=== PATIENT | female | born 1975 | race Caucasian/White ===

== ENCOUNTER 2020-02-27 09:51 | Outpatient (CLI) | payer OTHER, SELFPAY ==
--- NOTE | ~2020-02-27 | MM_ITS ---
EXAMINATION: MM screening [facility] BI w messi HISTORY: Screening TECHNIQUE: Craniocaudal and mediolateral oblique 3-D tomosynthesis images were obtained and synthetic 2-D images were generated. CAD analysis was submitted and interpreted. COMPARISON: Comparison to multiple prior studies sequentially, with oldest reviewed study dated 11/12. BREAST PARENCHYMAL COMPOSITION: There are scattered areas of fibroglandular density. FINDINGS: There is no evidence of suspicious mass, calcification, or architectural distortion to sugg est malignancy in either breast. There has been no suspicious interval change. IMPRESSION: 1. No mammographic evidence of malignancy. 2. Recommend routine screening mammography in one year. BI-RADS Category 1: Negative Reviewed, dictated and finalized at location A.
== END 2020-02-27 09:52 | disposition home or self-care (01) ==
LOC: ANHIMG 09:52
PROVIDERS: PCP Family Medicine; Visit Provider Obstetrics & Gynecology
DX: Z12.31 Encounter for screening mammogram for malignant neoplasm of breast (principal)
CPT/HCPCS: 77063; 77067

== ENCOUNTER 2021-02-28 14:40 | Outpatient (CLI) | payer OTHER, SELFPAY ==
--- NOTE | ~2021-02-28 | US_ITS ---
EXAMINATION: US pelvic complete w TV DATE: 02/28/2021 15:43 INDICATION: Displacement of intrauterine contraceptive device TECHNIQUE: Multiple transabdominal and endovaginal sonographic images of the pelvis were obtained. COMPARISON: 11/12/2012 FINDINGS: The uterus measures 10.2 x 4.9 x 6.0 cm. The endometrial complex is not well-defined. The I UD appears to be in expected position. The left ovary is not visualized however no left adnexal abnor mality is seen. The right ovary measures 2.6 x 3.1 x 1.9 cm. Nabothian cysts of the cervix measure up to 1.3 cm.. There is normal vascular flow in the right ovary. There is no free fluid in the pelvis. IMPRESSION: 1. IUD not well visualized but appears to be in expected position. 2. Endometrial complex not well-defined, significance unclear. Reviewed, dictated and finalized at location B.
--- NOTE | ~2021-02-28 | MM_ITS ---
EXAMINATION: MM screening [facility] BI w messi HISTORY: Screening TECHNIQUE: Craniocaudal and mediolateral oblique 3-D tomosynthesis images were obtained and synthetic 2-D images were generated. CAD analysis was submitted and interpreted. COMPARISON: Comparison to multiple prior studies sequentially, with oldest reviewed study dated 01/12. BREAST PARENCHYMAL COMPOSITION: There are scattered areas of fibroglandular density. FINDINGS: There is no evidence of suspicious mass, calcification, or architectural distortion to sugg est malignancy in either breast. There has been no suspicious interval change. IMPRESSION: 1. No mammographic evidence of malignancy. 2. Recommend routine screening mammography in one year. BI-RADS Category 1: Negative Reviewed, dictated and finalized at location A.
== END 2021-02-28 14:41 | disposition home or self-care (01) ==
PROVIDERS: PCP Family Medicine; Visit Provider Obstetrics & Gynecology
DX: Z12.31 Encounter for screening mammogram for malignant neoplasm of breast (principal); T83.32XA Displacement of intrauterine contraceptive device, initial encounter; Z97.5 Presence of (intrauterine) contraceptive device
CPT/HCPCS: 76830; 76856; 77063; 77067

== ENCOUNTER 2022-04-26 08:35 | Outpatient (CLI) | payer OTHER, SELFPAY ==
--- NOTE | ~2022-04-26 | MM_ITS ---
EXAMINATION: MM screening [facility] BI w messi HISTORY: Screening mammogram TECHNIQUE: Craniocaudal and mediolateral oblique 3-D tomosynthesis images were obtained and synthetic 2-D images were generated. CAD analysis was submitted and interpreted. COMPARISON: 02/28/2021, 02/27/2020, 01/31/2019 BREAST PARENCHYMAL COMPOSITION: There are scattered areas of fibroglandular density. FINDINGS: No suspicious mass, calcification, or architectural distortion are identified in either kayla ast to suggest malignancy. There has been no suspicious interval change. IMPRESSION: 1. No mammographic evidence of malignancy. 2. Recommend routine screening mammography in one year. BI-RADS Category 1: Negative Reviewed, dictated and finalized at location B.
== END 2022-04-26 08:36 | disposition home or self-care (01) ==
PROVIDERS: PCP Family Medicine; Visit Provider Obstetrics & Gynecology
DX: Z12.31 Encounter for screening mammogram for malignant neoplasm of breast (principal)
CPT/HCPCS: 77063; 77067

== ENCOUNTER → 2023-01-16 13:43 | Outpatient (CLI) | payer OTHER, SELFPAY ==
--- NOTE | ~2023-01-16 | CT_ITS ---
EXAMINATION: CT abdomen pelvis w con DATE: 01/16/2023 14:10 INDICATION: Left lower quadrant abdominal pain. TECHNIQUE: Computed tomography (CT) of the abdomen and pelvis was performed with 100 mL Omnipaque-350 intravenous contrast. Automated exposure control and iterative reconstruction technique were employe d. The dose-length product was 1014.73 mGy-cm. COMPARISON: None FINDINGS: Visualized lower lungs are clear. Heart size is normal. No pericardial or pleural effusion. Cholecyst ectomy clips the gallbladder fossa. Liver, spleen, pancreas, bilateral adrenal glands and kidneys are normal. Mild scattered colonic diverticulosis with prominent inflammatory stranding and associated f ocal colonic wall thickening such with a diverticulum at the distal descending colon consistent with diverticulitis. No abscess, free intraperitoneal fluid or extraluminal gas. Small bowel and appendix are normal. Small fat-containing umbilical hernia. Bladder is normal. T-shaped IUD in expected positi on within the anteverted uterus. Bilateral ovarian cysts/follicles the largest on the left measuring 2.4 cm. Mild lumbar levocurvature. IMPRESSION: 1. Radiographically uncomplicated diverticulitis at the distal descending colon. Reviewed, dictated and finalized at location A. IMPRESSION: 1. Radiographically uncomplicated diverticulitis at the distal descending colon .
== END ==
PROVIDERS: PCP Family Medicine; Visit Provider Family Medicine
DX: R10.32 Left lower quadrant pain (principal); R68.83 Chills (without fever); S30.860A Insect bite (nonvenomous) of lower back and pelvis, initial encounter; X58.XXXA Exposure to other specified factors, initial encounter
CPT/HCPCS: 74177; Q9967

== ENCOUNTER 2023-06-05 08:03 | Outpatient (CLI) | payer OTHER, SELFPAY ==
--- NOTE | ~2023-06-05 | MM_ITS ---
EXAMINATION: MM screening [facility] BI w messi HISTORY: Screening mammogram TECHNIQUE: Craniocaudal and mediolateral oblique 3-D tomosynthesis images were obtained and synthetic 2-D images were generated. CAD analysis was submitted and interpreted. COMPARISON: 04/26/2022, 02/28/2021, 02/27/2020 BREAST PARENCHYMAL COMPOSITION: There are scattered areas of fibroglandular density. FINDINGS: No suspicious mass, calcification, or architectural distortion are identified in either kayla ast to suggest malignancy. There has been no suspicious interval change. IMPRESSION: 1. No mammographic evidence of malignancy. 2. Recommend routine screening mammography in one year. 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
== END 2023-06-05 08:04 | disposition home or self-care (01) ==
LOC: ANHIMG 08:07
PROVIDERS: PCP Family Medicine; Visit Provider Obstetrics & Gynecology
DX: Z12.31 Encounter for screening mammogram for malignant neoplasm of breast (principal)
CPT/HCPCS: 77063; 77067

== ENCOUNTER 2023-12-02 16:24 | Outpatient (CLI) | payer OTHER, SELFPAY ==
--- NOTE | ~2023-12-02 | XR_ITS ---
EXAMINATION: XR foot LT min 3V, XR ankle LT min 3V DATE: 12/02/2023 16:53 INDICATION: Left foot pain TECHNIQUE: 1. Anteroposterior, mortise, additional oblique and lateral view of the left ankle were obtained. 2. Dorsoplantar, two oblique and lateral views of the left foot were obtained. COMPARISON: None. FINDINGS: Alignment of the left foot and ankle is normal. No fracture. Mild polyarticular osteoarthritis at the first metatarsophalangeal and multiple tarsometatarsal and interphalangeal joints. No cortical erosi ons or periosteal reaction. Small plantar calcaneal spur. The soft tissues are unremarkable. IMPRESSION: 1. Mild polyarticular osteoarthritis in the left mid and forefoot. No acute osseous abnormality. Reviewed, dictated and finalized at location B. IMPRESSION: 1. Mild polyarticular osteoarthritis in the left mid and forefoot. No acute oss eous abnormality.
== END 2023-12-02 16:25 ==
PROVIDERS: PCP Nurse Practitioner Family; Visit Provider Nurse Practitioner Family
DX: M79.672 Pain in left foot (principal); E66.01 Morbid (severe) obesity due to excess calories; Z71.3 Dietary counseling and surveillance
CPT/HCPCS: 73610; 73630

== ENCOUNTER 2024-01-11 09:04 | Outpatient (CLI) | payer OTHER, SELFPAY ==
--- NOTE | ~2024-01-11 | MR_ITS ---
EXAMINATION: MR foot LT wo con DATE: 01/11/2024 10:13 INDICATION: Left foot pain and swelling. TECHNIQUE: Magnetic resonance imaging (MRI) of the left foot was performed without intravenous contra st. COMPARISON: Left foot radiograph 12/02/2023 FINDINGS: Bone alignment is normal. No fracture. There is mild osteoarthritis of first metatarsophala ngeal joint. There is a skin marker lateral to the hindfoot. The plantar fascia is normal. There is a n enthesophyte at the calcaneal attachment. There is a small ankle joint effusion. The tendons are no rmal. There are changes of prior lateral ankle sprain characterized by thickening and increased signa l intensity involving the anterior talofibular ligament, calcaneofibular ligament, and anterior tibio fibular ligament. IMPRESSION: 1. Changes of prior lateral ankle sprain. 2. Small ankle joint effusion. Reviewed, dictated and finalized at location E.
== END 2024-01-11 09:05 ==
LOC: MICIMG 09:05
PROVIDERS: PCP Nurse Practitioner Family; Visit Provider Nurse Practitioner Family
DX: M79.672 Pain in left foot (principal); R20.0 Anesthesia of skin; M25.472 Effusion, left ankle
CPT/HCPCS: 73718

== ENCOUNTER 2024-06-11 07:30 | Outpatient (CLI) | payer OTHER, SELFPAY ==
--- NOTE | ~2024-06-11 | MM_ITS ---
EXAMINATION: MM screening [facility] BI w messi HISTORY: Screening mammogram TECHNIQUE: Craniocaudal and mediolateral oblique 3-D tomosynthesis images were obtained and synthetic 2-D images were generated. CAD analysis was submitted and interpreted. COMPARISON: 06/05/2023, 04/26/2022, 02/28/2021 BREAST PARENCHYMAL COMPOSITION:Not Dense. The breasts are almost entirely fatty FINDINGS: No suspicious mass, calcification, or architectural distortion are identified in either kayla ast to suggest malignancy. There has been no suspicious interval change. IMPRESSION: No mammographic evidence of malignancy. Recommend routine screening mammography in one year. 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
== END 2024-06-11 07:31 | disposition home or self-care (01) ==
LOC: ANHIMG 07:31
PROVIDERS: PCP Nurse Practitioner Family; Visit Provider Obstetrics & Gynecology
DX: Z12.31 Encounter for screening mammogram for malignant neoplasm of breast (principal)
CPT/HCPCS: 77063; 77067

== ENCOUNTER 2024-08-19 15:45 | Outpatient (CLI) | payer OTHER, SELFPAY ==
--- NOTE | ~2024-08-19 | CT_ITS ---
EXAMINATION: CT diagnostic chest wo con DATE: 08/19/2024 16:02 INDICATION: Calcified granuloma. TECHNIQUE: Computed tomography (CT) of the chest was performed without intravenous contrast. The dose -length product was 206.39 mGy-cm. Automated exposure control and iterative reconstruction technique were employed. COMPARISON: None FINDINGS: No significant pleural or pericardial effusion. No axillary, mediastinal or hilar lymphaden opathy. Calcified granuloma left upper lobe. No significant vascular abnormality. Small hiatal hernia . There are cholecystectomy clips. No focal airspace disease. Calcified left hilar lymph node, consis tent with chronic granulomatous disease. No endobronchial lesions. No pneumothorax. No focal lytic or blastic lesions. IMPRESSION: 1. Unremarkable CT chest. Reviewed, dictated and finalized at location A. 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 Unremarkable CT chest.
== END 2024-08-19 15:46 | disposition home or self-care (01) ==
LOC: MICIMG 15:45
PROVIDERS: PCP Pediatrics; Visit Provider Pediatrics
DX: J84.10 Pulmonary fibrosis, unspecified (principal)
CPT/HCPCS: 71250

== ENCOUNTER 2025-04-14 16:25 | Outpatient (CLI) | payer OTHER, SELFPAY ==
--- NOTE | ~2025-04-14 | XR_ITS ---
EXAMINATION: XR wrist LT min 3V, 04/14/2025 16:32 CDT HISTORY: LT WRIST PAIN THAT RADIATES INTO 1ST 2ND DIGIT COMPARISON: No comparisons available. Findings: No acute fracture or malalignment. No significant degenerative changes. Soft tissues unremarkable. Impression: No acute fracture or malalignment. Reviewed, dictated and finalized at location A. Impression: No acute fracture or malalignment.
== END 2025-04-14 16:26 | disposition home or self-care (01) ==
LOC: MICIMG 16:28
PROVIDERS: PCP Pediatrics; Visit Provider Student in an Organized Health Care Education/Training Program
DX: M25.532 Pain in left wrist (principal)
CPT/HCPCS: 73110